=== PATIENT | female | born 1990 | race Caucasian/White ===

== ENCOUNTER 2017-08-11 18:58 | Emergency (ER) | payer BC, OTHER ==
[~2017-08-11] VITALS: Ht 172.7 cm; Wt 49.9 kg
--- NOTE | ~2017-08-11 | EKG ---
[place] [address] [facility] [place] [address] ELECTROCARDIOGRAM REPORT Name: ALVARO KABA Room [facility]: [id number] Admission: 08/11/17 Attend Phys: Discharge: 08/11/17 Date of : 89 Report #: [id number] THIS REPORT FOR: //name// [facility] ED Test Date: 2017-08-11 Test Time: 18:59:42 Pat Name: ALVARO KABA Department: Room: Gender: F [facility] Worker: CELIA : 1990 Requested By: Raji Jhaveri Order Number: [id number] MD: Shadi Rodriguez Measurements Intervals Fisher Rate: 86 P: -22 [place]: 143 QRS: -10 QRSD: 108 T: 24 QT: 384 QTc: 460 Interpretive Statements Sinus rhythm RSR' in V1 or V2, probably normal variant Baseline wander in lead(s) I,III,aVL No previous ECG available for comparison Electronically Signed On 08-13-2017 13:30:51 CDT by Shadi Rodriguez [email or web address] <ELECTRONICALLY SIGNED> By: Shadi Rodriguez MD, [facility] 08/13/17 1330 1859 58 Shadi Rodriguez MD, [facility] /EPI
[~2017-08-11 18:58] MED LIST: APAP500; CHILDREN S; DERMOPLAST SPRA56 ML; DHA100 MG; FOLIC ACID1 MG; IBUPROFEN 600600 M1 PO; IRON325 PO; LANOLIN56 GM; LOCOID 0.1% CRE15 GM TP; NORCO 5-325 TA1 EACH PO; PRENATAL; PROMETRIUM100 MG PO; SENNA PO; TUCKS MEDICATE1 EAC1 TOP; ZOLOFT50 MG
[2017-08-11 19:38] LABS: HEMATOCRIT 34.3 % (37.0-47.0); HEMOGLOBIN 11.9 gm/dL (12.0-15.0); MCH 31.2 pg (26.0-34.0); MCHC 34.7 g/dL (28.0-37.0); MCV 89.9 fL (80.0-100.0); RBC 3.81 mil/uL (4.20-5.00); WBC 8.2 thou/uL (4.0-11.0)
[2017-08-11 19:49] LABS: CALCIUM 9.1 mg/dL (8.5-10.1); CREATININE 0.8 mg/dL (0.6-1.0); POTASSIUM 3.8 mmol/L (3.5-5.1)
[2017-08-11 19:54] LABS: ALBUMIN 3.6 g/dL (3.4-5.0); TOTAL BILIRUBIN 0.5 mg/dL (<0.1-1.0); TOTAL PROTEIN 7.4 g/dL (6.4-8.2)
[2017-08-11] MEDS ORDERED: ADDERALL 20 MG20 M1 PO (19:58)
[2017-08-11] MEDS ORDERED: XANAX 0.5 MG0.5 MG PO (19:59)
[2017-08-11] MEDS ORDERED: GIANVI 3 MG-0.1 EACH PO (19:59)
[2017-08-11] MEDS ORDERED: TOPROL XL25 MG PO (20:09)
[2017-08-11 20:23] VITALS: BP 117/81
== END 2017-08-11 20:25 | disposition home or self-care (01) ==
LOC: ER 18:58
PROVIDERS: Emergency Medicine
DX: R07.89 Other chest pain (principal); R00.2 Palpitations; F41.9 Anxiety disorder, unspecified; F17.210 Nicotine dependence, cigarettes, uncomplicated; F10.99 Alcohol use, unspecified with unspecified alcohol-induced disorder; Z98.890 Other specified postprocedural states

== ENCOUNTER 2018-09-17 18:34 | Emergency (ER) | payer BC, OTHER ==
[~2018-09-17] VITALS: Ht 172.7 cm; Wt 49.0 kg
[~2018-09-17 18:34] MED LIST changes: +ADDERALL 20 MG20 M1 PO; +GIANVI 3 MG-0.1 EACH PO; +TOPROL XL25 MG PO; +XANAX 0.5 MG0.5 MG PO
[2018-09-17 19:11] LABS: URINE BILIRUBIN NEGATIVE (Negative); URINE BLOOD 1+ (Negative); URINE CLARITY CLEAR; URINE COLOR YELLOW; URINE GLUCOSE-RANDOM* NEGATIVE (Negative); URINE KETONES 1+ (Negative); URINE LEUKOCYTES-REFLEX NEGATIVE (Negative); URINE NITRITE-REFLEX NEGATIVE (Negative); URINE PROTEIN (DIPSTICK) NEGATIVE (Negative); URINE UROBILINOGEN 0.2 E.U./dl (0.2-1.0)
[2018-09-17 19:26] LABS: SQUAMOUS 0-3 Few /LPF (0-3); URINE WBC-REFLEX 0-5 Rare /HPF (0-5)
[2018-09-17 19:27] LABS: BACTERIA-REFLEX 1-9 Few /HPF (None Seen); CASTS None Seen /LPF (None Seen); CRYSTALS None Seen /LPF (None Seen); URINE RBC 0-2 Rare /HPF (0-2)
[2018-09-17] MEDS ORDERED: TRAMADOL 50 MG50 MG PO (20:15)
[2018-09-17 20:57] LABS: ABSOLUTE NEUTROPHILS 3.3 thou/uL (1.4-8.2); BASOPHILS 0.7 % (0.0-2.0); EOSINOPHILS 1.6 % (0.0-3.0); HEMATOCRIT 34.1 % (37.0-47.0); HEMOGLOBIN 11.9 gm/dL (12.0-15.0); MCH 33.6 pg (26.0-34.0); MCHC 34.8 g/dL (28.0-37.0); MCV 96.4 fL (80.0-100.0); MONOCYTES 9.2 % (1.0-8.0); PLATELET COUNT 229 thou/uL (150-400); POLYS 61.5 % (36.0-66.0); RBC 3.53 mil/uL (4.20-5.00); RDW 13.2 % (10.5-14.5); WBC 5.4 thou/uL (4.0-11.0)
[2018-09-17 21:00] LABS: CREATININE 0.7 mg/dL (0.6-1.0); POTASSIUM 3.8 mmol/L (3.5-5.1)
[2018-09-17 22:55] VITALS: BP 128/78
== END 2018-09-17 22:20 | disposition home or self-care (01) ==
LOC: ER 18:34
PROVIDERS: Physician Assistant; Student in an Organized Health Care Education/Training Program
DX: N93.9 Abnormal uterine and vaginal bleeding, unspecified (principal); F17.210 Nicotine dependence, cigarettes, uncomplicated